=== PATIENT | male | born 1950 ===

== ENCOUNTER 2023-08-05 06:13 | Day surgery (SDC) | payer OTHER ==
[2023-08-03 13:28] VITALS: BMI 31.4
[2023-08-05] MEDS ORDERED: PROPOFOL 40 ML ONE (07:41)
[2023-08-05] MEDS ORDERED: Lidocaine 1% PF 5 ML VIAL ONE (07:41)
== END 2023-08-05 10:10 | disposition home or self-care (01) ==
LOC: CSHSDC 06:13
PROVIDERS: ATTEND Internal Medicine Gastroenterology
PROC: 0DJD8ZZ Inspection of Lower Intestinal Tract, Via Natural or Artificial Opening Endoscopic (ICD-10-PCS; principal; 2023-08-05)
DX: Z12.11 Encounter for screening for malignant neoplasm of colon (principal); K57.30 Diverticulosis of large intestine without perforation or abscess without bleeding; K64.8 Other hemorrhoids; I25.10 Atherosclerotic heart disease of native coronary artery without angina pectoris; I42.9 Cardiomyopathy, unspecified; E78.5 Hyperlipidemia, unspecified; E11.9 Type 2 diabetes mellitus without complications; Z79.899 Other long term (current) drug therapy; Z86.010 Personal history of colon polyps; Z85.038 Personal history of other malignant neoplasm of large intestine; Z79.01 Long term (current) use of anticoagulants
CPT/HCPCS: J2704